=== PATIENT | female | born 1985 | race Caucasian/White ===

== ENCOUNTER 2022-04-27 19:43 | Emergency (ER) | payer OTHER, SELFPAY ==
[2022-04-27 20:28] VITALS: BP 135/81; PULSE 97; RESP 18; TEMP 37; O2SAT 97; BMI 32.8
--- NOTE | 2022-04-27 22:39 | ED_ITS ---
HPI - Wound/Laceration General Chief Complaint: Wound/Laceration Stated Complaint: lac on finger Time Seen by Provider: 04/27/22 22:41 Source: patient Mode of arrival: ambulatory Limitations: no limitations History of Present Illness HPI narrative: 36-year-old female presents for laceration to the right thumb tip. She cut her finger using a mandolin. She does not report loss of sensation or decreased range of motion. Onset (ago): hour(s) (Within the hour of arrival) Extremity Location: right: hand (thumb) Place: home Patient tetanus UTD: No Context: accidental Associated symptoms: pain and other (Bleeding) Treatments prior to arrival: bandage Related Data Allergies Allergy/AdvReac Type Severity Reaction Status Date / Time No Known Allergies Allergy Verified 04/27/22 20:28 Review of Systems Review of Systems: Constitutional: No Fever, No Chills ENT/Mouth: No Ear Pain, No Hoarseness, No sore throat Eyes: No Eye Pain, No Swelling, No Redness, No Foreign Body Cardiovascular: No Chest Pain, No SOB Respiratory: No Cough, No Dyspnea Gastrointestinal: No Nausea, No Vomiting, No Diarrhea, No abdominal Pain Genitourinary: No Dysuria, No Hematuria Musculoskeletal: positive joint pain, No Myalgias, No Joint Swelling Skin: Positive right thumb laceration, No rash Neuro: No Weakness, No Numbness, No Paresthesias, No Loss of Consciousness, No Dizziness, No Headache Psych: No Anxiety/Panic, No Depression Heme/Lymph: no easy bruising, no Lymphadenopathy Endocrine: No Polyuria, No Polydipsia Yes all other systems are reviewed and are negative [facility] Past Medical History Attestation statement: The following information was validated with the patient. Source: old records reviewed Social History Social History Advance Directives: No Advance Directives Information Provided: No Physical Exam Vital Signs: Vital Signs: Last Vital Signs Temp 98.6 F 04/27/22 20:28 Pulse 97 04/27/22 20:28 Resp 18 04/27/22 20:28 BP 135/81 04/27/22 20:28 Pulse Ox 97 04/27/22 20:28 O2 Del Method 04/27/22 20:28 BMI result Body Mass Index 32.8 Appearance: Alert. Oriented X3. No acute distress. Eyes: Pupils equal, round and reactive to light. ENT: Pharynx normal. Neck: Normal inspection. Neck supple. CVS: Normal heart rate and rhythm. Pulses normal. Respiratory: No respiratory distress. Breath sounds normal. Abdomen: Soft and nontender. Skin: Avulsion laceration approximately 1 cm, flap to the radial aspect of the lateral distal thumb, Skin warm and dry. Normal skin color. Normal skin turgor. Extremities: Gait well-balanced well coordinated. Neuro: No motor deficit. No sensory deficit. Cranial nerves 2-12 intact. Course Course Course Narrative: 36-year-old female presents an avulsion flap laceration caused by a mandolin to the radial aspect of the distal right thumb. Will update Tdap vaccine. I discussed plan for gluing, Steri-Strips or sutures. Patient requesting sutures. Prepped and draped in sterile fashion. Patient tolerated procedure well. Please refer to procedure note for full details. Patient understands that she must return to medical professional to have sutures removed in 10 days. Patient verbalized understanding of and agrees plan of care discharge home. Verbalized understanding signs symptoms indicating need for emergent intervention. MDM - Wound/Laceration Differential Diagnosis Differential diagnosis: Likely laceration Medical Records Attestation: I reviewed the patient's medical records. Procedures Laceration Laceration 1: Site: hand Side (If applicable): right (thumb) Size (cm): 1 Description: flap Depth: simple, single layer Local Anesthetic: lidocaine 1% Amount of anesthesia used (mL): 2 Pre-repair: wound explored, irrigated extensively and deep structures intact Skin layer closed with: nylon Size (cm): 5-0 Number of sutures: 3 Technique: simple, interrupted Discharge Plan Discharge Clinical Impression: Laceration Patient Disposition: Home, Self-Care Instructions: Finger Laceration (ED), Care For Your Stitches (ED) Additional Instructions: You were evaluated for laceration to the radial aspect of the distal some. We placed 3 sutures. Please follow suture instructions. We updated her Tdap vaccine today. Follow up with her primary care physician as needed. Return to the emergency department for any new, concerning, or worsening symptoms.
[2022-04-27] MEDS: Diphth,Pertus(ACell),Tet Adult 0.5 ML SYRINGE IM (23:01)
[2022-04-28] MEDS: Lidocaine HCl 2 % MPF 5 ML VIAL SUBCUT (00:02)
== END 2022-04-28 00:03 | disposition home or self-care (01) ==
PROVIDERS: Emergency Provider Emergency Medicine; PCP Nurse Practitioner Family
DX: S61.011A Laceration without foreign body of right thumb without damage to nail, initial encounter (principal); S60.311A Abrasion of right thumb, initial encounter; W27.4XXA Contact with kitchen utensil, initial encounter; Y93.9 Activity, unspecified; Y92.000 Kitchen of unspecified non-institutional (private) residence as the place of occurrence of the external cause; Y99.9 Unspecified external cause status
CPT/HCPCS: 12001; 90471; 90715; 99284